=== PATIENT | female | born 1955 | race Caucasian/White ===

== ENCOUNTER 2021-01-18 19:28 | Emergency (ER) | payer MEDICARE ==
[2021-01-18 20:12] LABS: BASOPHIL 0.9 % (0-2); EOSINOPHIL 8.2 % (0-7); HGB 15.4 g/dl (12.5-16.0); LYMPHOCYTE 14.9 % (15-48); MCH 28.8 pg (25.0-31.0); MCHC 32.1 g/dL (32.0-36.0); MCV 89.9 fL (78.0-100.0); MONOCYTE 6.8 % (0-12); MPV 9.1 fL (6.0-9.5); NEUTROPHIL 69.1 % (41-80); NRBC 0; PLT 262 K/uL (150-400); RBC 5.34 M/uL (4.20-5.40); RDW 13.2 % (11.5-14.0); WBC 7.9 K/uL (4.0-10.5)
[2021-01-18 20:30] LABS: ALBUMIN 3.7 g/dL (3.4-5.0); BILIRUBIN - TOTAL 0.6 mg/dL (0.2-1.0); BUN/CREAT RATIO (CALC) 14.3 RATIO; CREATININE 0.98 mg/dL (0.51-0.95); GLOBULIN (CALCULATION) 3.7 g/dL; POTASSIUM 4.1 mmol/L (3.5-5.1); TOTAL PROTEIN 7.4 g/dL (6.4-8.2)
[2021-01-18 20:36] LABS: LACTIC ACID 2.6 mmol/L (0.4-1.9)
[2021-01-18 20:39] LABS: PRO-BNP 88 pg/mL (<125)
[2021-01-19] MEDS ORDERED: PREDNISONE 10MG10 MG PO (00:56)
== END 2021-01-19 01:48 | disposition home or self-care (01) ==
LOC: FER 19:28
PROVIDERS: Emergency Medicine Emergency Medical Services
DX: R06.02 Shortness of breath (principal); I10 Essential (primary) hypertension; J45.909 Unspecified asthma, uncomplicated; Z20.822 Contact with and (suspected) exposure to COVID-19
CPT/HCPCS: 36415; 36600; 71275; 80053; 82803; 83605; 83880; 84145; 84484; 85025; 85379; 93005; 94640; 94664; 96372; J1100; J2930; J3420; Q9967; U0002